=== PATIENT | female | born 1990 | race Caucasian/White ===

== ENCOUNTER → 2017-01-01 | Day surgery (SDC) | payer OTHER ==
[~2017-01-01] MED LIST: BUPIVACAINE HCL PF 0.75% 30 ML VIAL ONE; CIPR500T4 PO; CYCL-36 PO; IBUP800 PO; LACTATED RINGER'S 1000 ML INJ 1,000 ML ONE; LIDOCAINE 1.5%/EPINEPHrine 1:200,000 PF SOLN 30 ML AMP ONE; MIDAZOLAM HCL 5 MG/ML VIAL (1 ML) ONE; NEXP68IM IM; ONDANSETRON HCL 4 MG/2 ML VIAL IV PUSH ONE; PROPOFOL 200 MG/20 ML AMP IV ONE; PROT40TA PO; ZOFR4TAB3 SL; ceFAZolin INJ 1,000 MG VIAL ONE
--- NOTE | 2017-01-04 11:11 | MP ---
cc: NATANAEL IRVIN DATE OF SURGERY: January 01, 2017. PREOPERATIVE DIAGNOSIS Right shoulder short focal type 2 SLAP tear. POSTOPERATIVE DIAGNOSIS Right shoulder type 1 SLAP tear with subacromial bursitis. SURGEON Dr. Natanael Irvin. FISH BUTCHER MIKALA Santos FISH BUTCHER MIKALA Lou The surgical procedure was assisted by my Advanced Registered Nurse Practitioner. My MECHANICAL PIPING DESIGNER presence was necessary throughout this case for the manipulation and positioning of the surgical extremity. My MECHANICAL PIPING DESIGNER was assisting me throughout the duration of this procedure. The skill set of an Advance Registered Nurse Practitioner was medically necessary to complete this procedure. During the surgical case, the ophthalmic surgical assistant was working at the back table and the Advance Registered Nurse Practitioner was directly assisting me. PROCEDURE Right shoulder arthroscopic limited debridement of superior labrum with subacromial decompression. ANESTHESIA General anesthesia, interscalene block. PROCEDURE The patient was brought back to the operative theater. General anesthesia was administered. Note, she had interscalene block performed in the holding area. Once in the operative theater she had general anesthesia. She was placed into a lateral decubitus position with an axillary roll and a well-padded down leg. She was placed into 10 pounds of in-line traction. The right upper extremity was prepped and draped in usual sterile fashion. We made a standard posterior portal and the diagnostic arthroscopy revealed that the glenohumeral joint was intact with no chondromalacia. There were no loose bodies, in the axillary pouch, the rotator cuff both anteriorly and posteriorly were intact with no tears. The biceps tendon itself looked unremarkable other than some adhesions that were noted from the undersurface of the rotator cuff extending towards the base of the biceps but this did not look acute. We made a portal anteriorly in the soft spot. This allowed us to probed the labrum. There was some mild grade 1 tearing of the superior labrum but when probed there was no definite detachment of the labrum that looked unstable to probing. We used an oscillating shaver to debride the type 1 tear. The arthroscope was placed into the subacromial space. We found extensive bursitis that was extending off of the humeral head going into the subdeltoid region and extending anteriorly and posteriorly as well. These adhesions were attached with rotation of the shoulder. We performed a complete bursectomy, releasing all of these adhesions. We manipulated the shoulder, showed no residual adhesions. No acromioplasty was necessary as I did not identify a significant spur. We used underwater Bovie to achieve hemostasis of some of the bleeding bursal tissue. Portals were closed with 2-0 Vicryl followed by 3-0 Nylon and the arm was dressed. The patient was placed into a sling. Postop plan is early range of motion. MD SATYA Isaac/OTTONIEL /1:26 PM /11:01 AM
== END | disposition home or self-care (01) ==
LOC: ESDC 10:58
PROVIDERS: ATTEND Orthopaedic Surgery
DX: S43.431A Superior glenoid labrum lesion of right shoulder, initial encounter (principal); M75.51 Bursitis of right shoulder
CPT/HCPCS: 01630; 01991; 29822; 29826; 64417; J0690; J2250; J2405; J7120